=== PATIENT | male | born 1975 | race Caucasian/White ===

== ENCOUNTER 2022-07-16 10:59 | Emergency (ER) | payer SELFPAY ==
[2022-07-16 11:06] VITALS: TEMP 98.6; BMI 33.5
[2022-07-16] MEDS ORDERED: amLODIPine BESYLATE 10 MG TABLET (FP) PO ONE (11:49)
[2022-07-16] MEDS ORDERED: amLODIPine BESYLATE 10 MG TABLET (FP) ONE (12:09)
[2022-07-16 12:41] LABS: BASO % 0.4 % (0-2.0); EOS % 1.4 % (0-4.5); HEMATOCRIT 39.6 % (35.4-49); HEMOGLOBIN 13.5 GM/dL (11.7-16.9); LYMPH % 10.2 % (8-40); MCH 30.4 pg (25.7-33.7); MCHC 34.2 g/dl (32.0-35.9); MEAN CELL VOLUME 88.9 fl (80-96); MEAN PLT VOLUME 8.8 fl (7.5-11.1); PLATELET COUNT 250 10^3/uL (134-434); RBC 4.46 M/mm3 (4.00-5.60); RDW 13.3 % (11.9-15.9)
[2022-07-16 13:15] LABS: ALBUMIN 3.9 g/dl (3.4-5.0); BLOOD UREA NITROGEN 15.4 mg/dL (7-18); CALCIUM 8.8 mg/dL (8.5-10.1)
[2022-07-16 13:19] VITALS: RESP 19
[2022-07-16 13:19] LABS: BILIRUBIN,TOTAL 1.3 mg/dL (0.2-1); CREATININE 0.8 mg/dL (0.55-1.3)
[2022-07-16 13:20] LABS: TOT PROT 7.5 g/dl (6.4-8.2)
[2022-07-16 14:22] VITALS: BP 184/106; PULSE 78
[2022-07-16 16:00] LABS: URINE APPEARANCE CLEAR; URINE BILIRUBIN NEGATIVE (NEGATIVE); URINE COLOR YELLOW; URINE GLUCOSE (UA) NEGATIVE (NEGATIVE); URINE KETONE NEGATIVE (NEGATIVE); URINE LEUK ESTERASE NEGATIVE (NEGATIVE); URINE NITRITE NEGATIVE (NEGATIVE); URINE PROTEIN TRACE (NEGATIVE); URINE UROBILINOGEN 0.2 mg/dL (0.2-1.0)
== END 2022-07-16 14:49 | disposition home or self-care (01) ==
LOC: JER 10:59
DX: R03.0 Elevated blood-pressure reading, without diagnosis of hypertension (principal)
CPT/HCPCS: 36415; 80053; 81003; 85025; 93005; 93010; 99283-25